=== PATIENT | male | born 1995 | race Caucasian/White ===

== ENCOUNTER 2020-12-31 20:26 | Emergency (ER) | payer MEDICAID, SELFPAY ==
[2020-12-31] VITALS (16 sets, daily range): BP systolic 95–121; BP diastolic 55–78; PULSE 52–83; RESP 12–22; TEMP 36.4; O2SAT 99–100
--- NOTE | 2020-12-31 20:27 | ED.GENADUL_ITS ---
Discharge Plan Disposition Patient Disposition: HOME Condition: Good Discharge Details Clinical Impression: Opiate or related narcotic overdose Primary Care Provider: Bj Arreola ED Provider: Roger Costello Meds and New Rx's Prescriptions: Continued escitalopram oxalate 20 mg tablet 20 mg PO DAILY RF: 0 aripiprazole [Abilify] 15 mg tablet 15 mg PO DAILY RF: 0 Discharge Instructions Instructions: Opioid Use Disorder (ED) Additional Instructions: You should consider avoiding drugs especially narcotics altogether. If you feel you have a problem, you should reach out to [facility] at [phone] for help. Be sure to have Narcan around if you are going to use. Return to ED if any concerns. Medical Decision Making Patient arrives here status post opiate overdose which was accidental not purposeful. He did have CPR performed in he did receive 12 mg of intranasal Narcan. He states he really did not smoke any more fentanyl than he usually smokes in the past. This concerns me that there may be a more potent batch of fentanyl out in the community at this point. Patient declines IV, x-rays, labs but agrees to be observed for period of time. Patient has remained awake and alert here without issue. Vital signs and pulse ox remain normal. Patient is given phone number for [facility] if he decides he has a drug problem. Patient given Narcan to take home from the ED if needed in future. HPI General Mode of arrival: EMS . Date/Time Provider Initiated Documentation: 12/31/20 20:27 . Limitations to Documentation: no limitations . Information obtained by: patient, EMS and RN notes reviewed . HPI Narrative: Patient presents to ED status post respiratory arrest in the field from fentanyl. Patient reportedly smoked a ticket of fentanyl tonight. He has done this previously without issue, but states he is not a daily user. Tonight he became unresponsive, stopped breathing, had CPR performed by his mother. Family also gave him intranasal Narcan total of 12 mg by EMS report. By the time fire and EMS got there patient was awake and coherent. He did agree to transport to hospital for observation. States no other drugs or alcohol tonight. Reports a little bit of chest discomfort but denies any real pain and no shortness of breath. Patient also reports that the fentanyl was obtained from the same dealer he always gets drugs from. Related Data Home Medications Medication Instructions Recorded Confirmed aripiprazole [Abilify] 15 mg PO DAILY 12/31/20 12/31/20 escitalopram oxalate 20 mg PO DAILY 12/31/20 12/31/20 Allergies Allergy/AdvReac Type Severity Reaction Status Date / Time azithromycin Allergy Mild Hives Unverified 12/31/20 20:34 Review of Systems Narrative: As documented in HPI otherwise negative as below. Const: no fever, chills, weakness Resp: no cough, SOB, pleuritic pain CV: no CP, diaphoresis, edema, syncope GI: no abdominal pain, nausea, vomiting, diarrhea Neuro: no headache, numbness, focal weakness, confusion PFSH Medical History Depression Surgical History History of tympanoplasty Social History Smoking/Tobacco Use Status: Never Smoking risk assessment performed?: Yes Drug use: Occasionally Substance use type: opiates Do you feel safe at home: Yes Do you feel safe in your relationship?: Yes Exam Narrative Exam Narrative: Const: WDWN male in NAD. HEENT: NC/AT. Normal facial exam. Neck: Supple. Trachea midline. Lungs: Normal respiratory effort. Lungs are clear. Cor: RRR without murmur/gallop. Good radial pulses. Neuro: A+O x 3. Normal speech, mentation. Cranial nerves II - XII grossly intact. No gross motor or sensory deficit. Ext: No C/C/E. Skin: Warm and dry.
--- NOTE | 2020-12-31 21:22 | NUR.NOTE ---
pt denied trying to kill himself. he states that the over dose was accidental Nursing Note:
== END 2020-12-31 22:00 | disposition home or self-care (01) ==
PROVIDERS: Emergency Provider Emergency Medicine; PCP Family Medicine
DX: T40.411A Poisoning by fentanyl or fentanyl analogs, accidental (unintentional), initial encounter (principal); R40.4 Transient alteration of awareness
CPT/HCPCS: 99283

== ENCOUNTER 2022-12-31 19:16 | Emergency (ER) | payer MEDICAID, SELFPAY ==
[2022-12-31] VITALS (65 sets, daily range): BP systolic 112–140; BP diastolic 64–78; PULSE 64–101; RESP 11–22; TEMP 36.8; O2SAT 97–100
--- NOTE | 2022-12-31 19:24 | ED.GENADUL_ITS ---
Discharge Plan Disposition Patient Disposition: Home Condition: Improving Discharge Details Chief Complaint: OD/Poison Clinical Impression: Opiate or related narcotic overdose Primary Care Provider: Unknown,Unknown ED Provider: Rex Soto Home Meds and New Rx's Prescriptions: No Action escitalopram oxalate 20 mg tablet 20 mg PO DAILY Patient Comments: TAKE 1 TABLET BY MOUTH EVERY DAY aripiprazole [Abilify] 15 mg tablet 15 mg PO DAILY Patient Comments: Take 1 tablet by mouth every morning trazodone 50 mg tablet 50 mg PO 1XD Discharge Instructions Instructions: Adult Overdose (ED) Medical Decision Making 27-year-old male presents after acute opioid overdose, patient endorses that he believed he was smoking a dab, became immediately somnolent, Narcan 12 mg intranasally was administered by bystanders immediately. Patient returned to baseline state. Alert oriented no acute distress no respiratory distress no chest pain hemodynamically stable. Clinically sober. Will observe here in department on monitor. Patient refusing labs imaging. Likely simple opioid overdose. Lower suspicion for aspiration or trauma 21:15 patient resting comfortably no acute distress. No respiratory symptoms, hemodynamically stable. Clinically sober HPI General Date/Time Provider Initiated Documentation: 12/31/22 19:23 . HPI Narrative: 27-year-old male history of opiate abuse in the past, believes he was smoking dabs when he became somnolent and unresponsive, bystanders administered 12 mg of intranasal Narcan with immediate response. Patient denies chest pain or shortness of breath. Patient is alert and oriented. Related Data Home Medications Medication Instructions Recorded Confirmed aripiprazole 15 mg tablet (Abilify) 15 mg PO DAILY 12/31/20 12/31/22 escitalopram oxalate 20 mg tablet 20 mg PO DAILY 12/31/20 12/31/22 trazodone 50 mg tablet 50 mg PO 1XD 12/31/22 12/31/22 Allergies Allergy/AdvReac Type Severity Reaction Status Date / Time azithromycin Allergy Mild Hives Unverified 12/31/22 19:23 General Stated Complaint: OD/Poison CESAR: 3 Review of Systems Narrative: Review of Systems Constitutional: AMS Eyes: negative ENT: negative Cardiovascular: negative Respiratory: negative Gastrointestinal: negative : negative Musculoskeletal: negative Skin: negative Neurologic: negative Psych: negative PFSH All Active Problems (Updated 12/31/22 @ 21:16 by Rex Soto MD) Opiate or related narcotic overdose (Acute) Depression (Chronic) Medical History Depression Surgical History History of tympanoplasty Social History Smoking/Tobacco Use Status: Never Smoking risk assessment performed?: Yes Alcohol Intake: current Alcohol Intake frequency: holidays/special occasions only Drug use: Occasionally Substance use type: marijuana and opiates Do you feel safe at home: Yes Do you feel safe in your relationship?: Yes Exam Narrative Exam Narrative: Physical Examination General: alert, awake, cooperative, resting comfortably, no acute distress HEENT: normocephalic, atraumatic; PERRL, EOM intact, conjunctiva normal; no nasal discharge; moist mucous membranes, oral and pharyngeal mucosa normal, tolerating secretions; resolved epistaxis of left naris Neck: supple, trachea midline; full ROM Chest: normal to inspection Respiratory: normal respiratory effort, speaking in full sentences, clear to auscultation, no wheezing, rales or rhonchi Cardiac: regular rate, regular rhythm, S1S2 intact, no murmurs rubs or gallops GI: abdomen soft, non-tender, non-distended; no palpable mass or hepatosplenomegaly Skin: no lesions, rashes or trauma appreciated Neuro: AAOx3, normal speech, moving all extremities Psych: Appropriate mood and affect Course Vital Signs Vital signs: Vital Signs Temperature 36.8 C 12/31/22 19:17 Pulse 98 H 12/31/22 19:17 Respiratory Rate 18 12/31/22 19:17 Blood Pressure 140/78 12/31/22 19:17 Pulse Oximetry 99 12/31/22 19:17 Temperature 36.8 C 12/31/22 19:17 Pulse 98 H 12/31/22 19:17 Respiratory Rate 18 12/31/22 19:17 Respiratory Effort Normal 12/31/22 19:21 Blood Pressure 140/78 12/31/22 19:17 Blood Pressure Position Sitting 12/31/22 19:17 Pulse Oximetry 99 12/31/22 19:17 Oxygen Delivery Method Room Air 12/31/22 19:17 Oxygen Flow Rate 0 12/31/22 19:17 Pain Level 0 12/31/22 19:17
== END 2022-12-31 21:26 | disposition home or self-care (01) ==
PROVIDERS: Emergency Provider Emergency Medicine
DX: T40.411A Poisoning by fentanyl or fentanyl analogs, accidental (unintentional), initial encounter (principal)
CPT/HCPCS: 99281; 99282